=== PATIENT | male | born 1990 | race Caucasian/White ===

== ENCOUNTER 2021-12-12 10:59 | Day surgery (SDC) | payer OTHER ==
[~2021-12-12] VITALS: Ht 177.8 cm; Wt 133.1 kg
[~2021-12-12 10:59] MED LIST: Norco 5-325 Ta1 EACH PO
--- NOTE | 2021-12-12 11:09 | NUR ---
History, Chart, Medications and Allergies reviewed before start of procedure. Patient confirms NPO status and agrees with scheduled surgery. Patient States Post-Procedure ride home has been arranged with his , Neelima.
--- NOTE | 2021-12-12 11:41 | NUR ---
Lungs clear T/O to Auscultation.
--- NOTE | 2021-12-12 15:27 | NUR ---
Discharge instructions reviewed with patient. Patient verbalizes understanding. Copy given to patient to take home. Dressing to procedure site clean, dry, intact with no visible drainage, swelling, erythema or bruising noted. CMS INTACT. Discharged via wheelchair to private car for ride home.
--- NOTE | 2021-12-13 09:56 | NUR ---
12/13/21 0956 Jennifer Addison VERIFICATIONS: EDIT CHART.
== END 2021-12-12 15:27 | disposition home or self-care (01) ==
LOC: ORSCMMR 10:59
PROVIDERS: Orthopaedic Surgery
PROC: 0PSP34Z Reposition Right Metacarpal with Internal Fixation Device, Percutaneous Approach (ICD-10-PCS; principal; 2021-12-12 12:15)
DX: S62.314A Displaced fracture of base of fourth metacarpal bone, right hand, initial encounter for closed fracture (principal); S62.316A Displaced fracture of base of fifth metacarpal bone, right hand, initial encounter for closed fracture; E66.01 Morbid (severe) obesity due to excess calories; Z68.41 Body mass index [BMI] 40.0-44.9, adult
CPT/HCPCS: A9270; J0171; J0690; J1100; J1170; J1885; J2250; J2405; J2704; J3010; J7120

== ENCOUNTER 2022-02-02 00:16 | Emergency (ER) | payer OTHER ==
[~2022-02-02] VITALS: Ht 177.8 cm; Wt 136.1 kg
== END 2022-02-02 05:15 | disposition home or self-care (01) ==
LOC: ER 00:16
DX: M79.641 Pain in right hand (principal); Z88.2 Allergy status to sulfonamides
CPT/HCPCS: 73110; 96372; 99283-25; J1885

== ENCOUNTER 2022-06-10 08:55 | Observation (INO) | payer OTHER ==
[~2022-06-10] VITALS: Ht 177.8 cm; Wt 127.0 kg
[2022-06-10 10:23] LABS: BASOPHILS ABSOLUTE AUTO 0.06 K/mm3 (0.00-0.23); BASOPHILS PERCENT AUTO 0 % (0-2); EOSINOPHILS ABSOLUTE AUTO 0.06 K/mm3 (0.00-0.68); EOSINOPHILS PERCENT AUTO 0 % (0-6); Hematocrit 42.3 % (37.0-53.0); Hemoglobin 14.2 g/dL (13.5-17.5); IMMATURE GRAN ABSOLUTE AUTO 0.05 K/mm3 (0.00-0.10); IMMATURE GRAN PERCENT AUTO 0 % (0-1); LYMPHOCYTES PERCENT AUTO 10 % (21-46); MONOCYTES ABSOLUTE AUTO 1.01 K/mm3 (0.16-1.47); MONOCYTES PERCENT AUTO 7 % (4-13); Mean Corpuscular HGB 28.5 pg (26.0-34.0); Mean Corpuscular HGB Conc 33.6 g/dL (31.5-36.5); Mean Corpuscular Volume 85 fL (80-100); Mean Platelet Volume 10.6 fL (9.1-12.4); NEUTROPHILS ABSOLUTE AUTO 11.87 K/mm3 (1.96-9.15); NEUTROPHILS PERCENT AUTO 82 % (41-73); Platelet Count 199 K/mm3 (150-400); RDW Coefficient Variation 12.8 % (11.7-14.2); RDW Standard Deviation 39.8 fL (35.1-46.3); Red Blood Cell Count 4.98 M/mm3 (4.30-5.90); White Blood Cell Count 14.45 K/mm3 (4.00-11.30)
[2022-06-10 10:44] LABS: Albumin, Blood 3.3 g/dL (3.4-5.0); Albumin/Globulin Ratio 0.8 (0.8-1.8); Bilirubin, Total 0.7 mg/dL (0.1-1.0); Bun/Creatinine Ratio 10.2 (12.0-20.0); Calcium, Blood 9.5 mg/dL (8.5-10.1); Creatinine, Blood 0.98 mg/dL (0.60-1.20); Globulin, Blood 4.1 g/dL (2.2-4.0); Potassium, Blood 4.2 mmol/L (3.5-5.5); Total Protein, Blood 7.4 g/dL (6.4-8.2)
[2022-06-10 14:09] LABS: Source, Urine Clean Catch
[2022-06-10 14:21] LABS: Appearance, Urine Clear (Clear); Bilirubin, Urine Neg (Neg); Blood, Urine 1+ (Neg); Color, Urine Yellow (P-Yellow); Glucose Qualitative, Urine Neg (Neg); Ketones, Urine Neg (Neg); Leukocyte Esterase, Urine Neg (Neg); Nitrite, Urine Neg (Neg); Protein, Urine 1+ (Neg); Urobilinogen, Urine NORM (Normal)
[2022-06-10 14:39] LABS: Bacteria Few /hpf; Red Blood Cells, Urine 0-2 /hpf (0-2); Squamous Epithelial Cells Rare /hpf (Few); White Blood Cells, Urine 0-2 /hpf (0-5)
--- NOTE | 2022-06-10 17:48 | NUR ---
SHIFT SUMMARY PT A&OX4, VSS/RA, NPO/NAUSEA MANAGED WELL WITH REGLAN, VOIDING, AMB INDEPENDENTLY TO BRP, DENIES NEED FOR PAIN MED. LEFT FOR SURGERY APPROX 174. WILL REPORT TO ONCOMING NOC RN.
--- NOTE | 2022-06-10 18:06 | NUR ---
06/10/22 180 Lenin Mccain PT WAS GIVEN IV ANCEF 2GRAMS BY DR NAJERA [phone].
[2022-06-11 04:25] LABS: Hematocrit 39.8 % (37.0-53.0); Hemoglobin 13.2 g/dL (13.5-17.5); Mean Corpuscular HGB 28.6 pg (26.0-34.0); Mean Corpuscular HGB Conc 33.2 g/dL (31.5-36.5); Mean Corpuscular Volume 86 fL (80-100); Mean Platelet Volume 10.7 fL (9.1-12.4); Platelet Count 199 K/mm3 (150-400); RDW Coefficient Variation 12.8 % (11.7-14.2); RDW Standard Deviation 40.2 fL (35.1-46.3); Red Blood Cell Count 4.61 M/mm3 (4.30-5.90); White Blood Cell Count 15.62 K/mm3 (4.00-11.30)
--- NOTE | 2022-06-11 04:58 | NUR ---
SHIFT SUMMARY PT A&OX4, PLEASANT AND COOPERATIVE. MANAGING PAIN WITH ROXICODONE/TORADOL. VSS, 2L OF O2 CURRENTLY, DOWN FROM 3L. TOLERATING PO INTAKE. INDEPENDENT TO BATHROOM. 3 LAP SITES C/D/I. CALLS APPROPRIATELY, CALL LIGHT WITHIN REACH.
[2022-06-11] MEDS ORDERED: Acetaminophen650 M1 PO (10:35)
[2022-06-11] MEDS ORDERED: AMOCLA875 PO (10:36)
[2022-06-11] MEDS ORDERED: OXYC5 PO (10:36)
--- NOTE | 2022-06-11 11:20 | NUR ---
DISCHARGE SUMMARY PT A&OX4, VSS/RA, BRITNEY PO, VOIDING, AMB INDEPENDENTLY IN ROOM/DRESSED SELF, PAIN MANAGED WELL WITH OXY 5/TYL/TORADOL, IV DC'D. POD1 LAP APPY, 3 WOUND GLUE SITES CDI. DC INS PROVIDED. PT REP UNDERSTANDING THOSE INSTRUCTIONS INCLUDING SCRIPTS AT [facility]. DECLINED WC, WALKED OFF FLOOR WITH [employer] TO GO HOME WITH , WITH ALL PERSONAL POSSESSIONS INCLUDING DC PACKET.
== END 2022-06-11 11:31 | disposition home or self-care (01) ==
LOC: ER 08:55 → SURS 08:56
PROVIDERS: Physician Assistant; ADMIT Surgery
DX: K35.33 Acute appendicitis with perforation, localized peritonitis, and gangrene, with abscess (principal); E66.9 Obesity, unspecified; Z88.2 Allergy status to sulfonamides; Z68.41 Body mass index [BMI] 40.0-44.9, adult
CPT/HCPCS: 36415; 74177; 80053; 81001; 83690; 85025; 85027; 88304; 96366; 96372; 96375; 96376; A9270; G0378; J0690; J0694; J1100; J1170; J1650; J1885; J2250; J2370; J2405; J2704; J2765; J2795; J3010; J7120; Q9967